=== PATIENT | male | born 1965 | race Caucasian/White ===

== ENCOUNTER 2017-01-02 00:36 | Emergency (ER) | payer BC ==
[2017-01-02 00:42] VITALS: TEMP 97.9
[2017-01-02] MEDS ORDERED: OXYMETAZOLINE 0.05% NASL SPRAY 15 ML NASAL STA (01:00)
--- NOTE | 2017-01-02 01:10 | ED ---
General Adult HPI - General Chief complaint: ENT Stated complaint: nose bleed Time Seen by Provider: 01/02/17 00:47 Source: patient, family, RN notes reviewed Mode of arrival: ambulatory Limitations: no limitations - History of Present Illness Initial comments: Patient is a pleasant 51-year-old male presenting to the emergency Department complaining of nosebleed. Onset was around 4 hours ago. Bleeding has been intermittent. Patient feels like bleeding is still occur and left-sided dripping down the back. Patient states his hemorrhoids may be bleeding somewhat however is not concerned regarding that. Patient is on Effient secondary to stent placement done around 4 months ago. Cardiac stenting. Patient denies any nose trauma. No weakness or shortness of breath. - Related Data Home Medications Medication Instructions Recorded Confirmed Ascorbic Acid [Vitamin C] 1,000 mg PO DAILY 07/09/16 07/09/16 Cyanocobalamin (Vitamin B-12) 5,000 mcg PO DAILY 07/09/16 07/09/16 [Vitamin B12] Multivitamins, Thera [Multivitamin] 1 tab PO DAILY 07/09/16 07/09/16 amLODIPine [Norvasc] 5 mg PO HS 07/09/16 07/09/16 cloNIDine HCL [Catapres] 0.1 mg PO TID 07/09/16 07/09/16 Previous Rx's Medication Instructions Recorded Aspirin 325 mg PO DAILY #30 tab 07/12/16 Lisinopril [Zestril] 5 mg PO BID #60 tab 07/12/16 Metoprolol Tartrate [Lopressor] 50 mg PO BID #60 tab 07/12/16 Nitroglycerin Sl Tabs [Nitrostat] 0.4 mg SUBLINGUAL Q5M PRN #25 tab 07/12/16 Prasugrel [Effient] 10 mg PO DAILY #30 tab 07/12/16 Rosuvastatin Calcium [Crestor] 40 mg PO DAILY #30 tab 07/12/16 ALPRAZolam [Xanax] 0.5 mg PO Q8HR PRN #10 tablet 01/02/17 Allergies Allergy/AdvReac Type Severity Reaction Status Date / Time Latex, Natural Rubber Allergy Mild Rash/Hives Verified 01/02/17 00:42 adhesive tape AdvReac Itching Verified 01/02/17 00:42 Review of Systems ROS Statement: Those systems with pertinent positive or pertinent negative responses have been documented in the HPI. ROS Other: All systems not noted in ROS Statement are negative. Constitutional: Denies: fever Eyes: Denies: eye pain ENT: Reports: epistaxis. Denies: ear pain Respiratory: Denies: dyspnea Cardiovascular: Denies: chest pain Endocrine: Denies: fatigue Gastrointestinal: Denies: abdominal pain Genitourinary: Denies: dysuria Musculoskeletal: Denies: back pain Skin: Denies: rash Neurological: Denies: weakness Past Medical History Past Medical History: Chest Pain / Angina, Hyperlipidemia, Hypertension Additional Past Medical History / Comment(s): arsenic poisoning, vitamin deficiency, [place] disease History of Any Multi-Drug Resistant Organisms: None Reported Past Surgical History: Hernia Repair, Tonsillectomy Additional Past Surgical History / Comment(s): 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 Past Anesthesia/Blood Transfusion Reactions: No Reported Reaction Past Psychological History: No Psychological Hx Reported Smoking Status: Never smoker Past Alcohol Use History: None Reported Past Drug Use History: None Reported - Past Family History Father Family Medical History: Coronary Artery Disease (CAD), Myocardial Infarction (CT ) Mother Family Medical History: Cancer General Exam Limitations: no limitations General appearance: alert, in no apparent distress Head exam: Present: atraumatic Eye exam: Present: normal appearance, PERRL ENT exam: Present: other (Left nares with fresh blood. Unable to identify site of active bleeding.) Neck exam: Present: normal inspection Respiratory exam: Present: normal lung sounds bilaterally Cardiovascular Exam: Present: regular rate, normal rhythm GI/Abdominal exam: Present: soft. Absent: tenderness Extremities exam: Present: normal inspection Neurological exam: Present: alert Psychiatric exam: Present: normal affect, normal mood Skin exam: Absent: rash Course Vital Signs 01/02/17 00:40 Temperature 97.9 F Pulse Rate 89 Respiratory 20 Rate Blood Pressure 154/90 O2 Sat by Pulse 96 Oximetry - Reevaluation(s) Reevaluation #1: 01/02/17 01:06 Patient is advised to discontinue Effient for the next few days. Procedures - Procedures Initial comment: Epistaxis: Left near does have some fresh blood without signs of active bleeding. Secondary to prolonged bleeding posterior/long Rhino Rocket was placed without Complication. Afrin was also used. Hemostasis was obtained Medical Decision Making - Medical Decision Making Hemostasis remains. Patient advised to hold Effient for the next few days. Disposition Clinical Impression: Epistaxis Disposition: HOME SELF-CARE Condition: Stable Instructions: Nosebleed (ED) Additional Instructions: Please follow-up with primary care physician and ENT. ENT and 3-5 days for packing removal and further evaluation. Continue antibiotics while packing is in place, your currently on antibiotics. Return for uncontrolled bleeding, bleeding from other areas, worsening symptoms or other concerns. Hold Effient until advised by your doctor. Prescriptions: ALPRAZolam [Xanax] 0.5 mg PO Q8HR PRN #10 tablet PRN Reason: Anxiety Referrals: Willie Tate DO [Primary Care Provider] - 1-2 days Azael Burris DO [Doctor of Osteopathic Medicine] - 1-2 days
[2017-01-02] MEDS ORDERED: ALPRAZolam 0.5 MG TAB PO STA (03:02)
[2017-01-02 03:29] VITALS: BP 159/89; PULSE 90; RESP 18
== END 2017-01-02 03:12 | disposition home or self-care (01) ==
LOC: EC 00:36
DX: R04.0 Epistaxis (principal); I10 Essential (primary) hypertension; Z79.899 Other long term (current) drug therapy; Z91.040 Latex allergy status; Z91.048 Other nonmedicinal substance allergy status
CPT/HCPCS: 30901; 99283

== ENCOUNTER 2023-07-22 21:47 | Emergency (ER) | payer BC ==
[2023-07-22 21:55] VITALS: PULSE 90; RESP 18
[2023-07-22] MEDS ORDERED: SODIUM CHLORIDE 0.9% 1,000 ML IV STA (21:56)
[2023-07-22] MEDS ORDERED: FAMOTIDINE 20 MG/2 ML VIAL IV STA (21:56)
[2023-07-22] MEDS ORDERED: methylPREDNISolone SOD SUCCI 125 MG/2 ML VIAL IV STA (21:56)
[2023-07-22] MEDS ORDERED: diphenhydrAMINE 50 MG CAP PO STA (21:56)
[2023-07-22] MEDS ORDERED: TRANEXAMIC 1,000 MG/100ML-NACL 1,000 MG in SALINE 1 100ML.BAG IVPB ONE (21:57)
--- NOTE | 2023-07-22 22:00 | ED ---
Allergic Reaction HPI - General Chief complaint: Allergic Reaction Stated complaint: Allergic reaction Time Seen by Provider: 07/22/23 21:54 Source: patient Mode of arrival: wheelchair Limitations: no limitations - History of Present Illness Initial Comments: Dewey is a very pleasant 58-year-old gentleman who presents the ER today for evaluation of possible ALLERGIC reaction. Patient reports that about 30 minutes prior to arrival he noticed that his lips and tongue were swelling his heart having trouble speaking and swallowing. He also noted some redness of his face and neck. No rash anywhere else. States that he felt like his tongue was swoll en that made it difficult to breathe but otherwise no wheezing no cough. No nausea or vomiting. No new exposures that he is aware of at all. He is on lisinopril. - Related Data Home Medications Medication Instructions Recorded Confirmed Ascorbic Acid [Vitamin C] 1,000 mg PO DAILY 07/09/16 07/09/16 Cyanocobalamin (Vitamin B-12) 5,000 mcg PO DAILY 07/09/16 07/09/16 [Vitamin B12] Multivitamins, Thera [Multivitamin] 1 tab PO DAILY 07/09/16 07/09/16 amLODIPine [Norvasc] 5 mg PO HS 07/09/16 07/09/16 cloNIDine HCL [Catapres] 0.1 mg PO TID 07/09/16 07/09/16 Previous Rx's Medication Instructions Recorded Aspirin 325 mg PO DAILY #30 tab 07/12/16 Metoprolol Tartrate [Lopressor] 50 mg PO BID #60 tab 07/12/16 Nitroglycerin Sl Tabs [Nitrostat] 0.4 mg SUBLINGUAL Q5M PRN #25 tab 07/12/16 Prasugrel [Effient] 10 mg PO DAILY #30 tab 07/12/16 Rosuvastatin Calcium [Crestor] 40 mg PO DAILY #30 tab 07/12/16 lisinopriL [Zestril] 5 mg PO BID #60 tab 07/12/16 ALPRAZolam [Xanax] 0.5 mg PO Q8HR PRN #10 tablet 01/02/17 EPINEPHrine (Auto Inject) [Epipen] 0.3 mg IM ONCE PRN #1 each 07/22/23 Allergies Allergy/AdvReac Type Severity Reaction Status Date / Time Latex, Natural Rubber Allergy Mild Rash/Hives Verified 07/22/23 21:55 adhesive tape AdvReac Itching Verified 07/22/23 21:55 Review of Systems ROS Statement: Those systems with pertinent positive or pertinent negative responses have been documented in the HPI. ROS Other: All systems not noted in ROS Statement are negative. Past Medical History Past Medical History: Chest Pain / Angina, Hyperlipidemia, Hypertension Additional Past Medical History / Comment(s): arsenic poisoning, vitamin deficiency, [place] disease History of Any Multi-Drug Resistant Organisms: None Reported Past Surgical History: Hernia Repair, Tonsillectomy Additional Past Surgical History / Comment(s): lung biopsy-polyps caused by ar senic poisoning Past Anesthesia/Blood Transfusion Reactions: No Reported Reaction Past Psychological History: No Psychological Hx Reported Past Alcohol Use History: None Reported Past Drug Use History: None Reported - Past Family History Father Family Medical History: Coronary Artery Disease (CAD), Myocardial Infarction ([place]) Mother Family Medical History: Cancer General Exam - General Exam Comments Initial Comments: Physical Exam GENERAL: Moderate distress HENT: Normocephalic, Atraumatic Mild angioedema of the upper lip Angioedema of the uvula No significant angioedema of the tongue EYES: PERRL, EOMI PULMONARY: Unlabored respirations. No wheezing CARDIOVASCULAR: RRR Warm and well perfused extremities ABDOMEN: Non-distended SKIN: Hives noted on neck : Deferred NEUROLOGIC: Alert and oriented Normal speech Normal gait MUSCULOSKELETAL: Moving all extremities with no apparent injury PSYCHIATRIC: No SI/HI Limitations: no limitations Course Vital Signs 07/22/23 07/22/23 21:52 22:49 Pulse Rate 90 90 Respiratory 18 18 Rate Blood Pressure 163/110 164/107 O2 Sat by Pulse 99 98 Oximetry Medical Decision Making - Medical Decision Making Patient was seen and evaluated immediately upon arrival to the emergency department patient was noted to have some angioedema of the upper lip and uvula ALLERGIC reaction order set was ordered takes he was given for angioedema thought to be due to ice and a L Patient was observed and noted have improvement in the angioedema. Patient repo rts resolution of the sensation of swelling of his mouth or tongue he stated he can speak and swallow normally he felt much better and would like to be discharged home. Considering that we did not know the cause of the reaction and the patient did have some rash I did advise he may have had an ALLERGIC reaction and he should be prescribed an EpiPen. However given that he had angioedema and is on lisinopril I also recommended he stop this medication and follow with his continuous improvement lead to he will call tomorrow to discuss. Was pt. sent in by a medical professional or institution ([facility] Agarwal, CINDER CRUSHER OPERATOR, urgent care, hospital, or retirement...) When possible be specific @ -No Did you speak to anyone other than the patient for history (EMS, parent, family, police, friend...)? What history was obtained from this source @ -No Did you review nursing and triage notes (agree or disagree)? Why? @ -I reviewed and agree with nursing and triage notes Were old charts reviewed (outside hosp., previous admission, EMS record, old EKG, old radiological studies, urgent care reports/EKG's, retirement records)? Report findings @ -No previous visits Differential Diagnosis (chest pain, altered mental status, abdominal pain women, abdominal pain men, vaginal bleeding, weakness, fever, dyspnea, syncope, headache, dizziness, GI bleed, back pain, seizure, CVA, palpatations, mental health, musculoskeletal)? @ -Differential includes angioedema, ALLERGIC reaction, anaphylaxis EKG interpreted by me (3pts min.). @ -As above X-rays interpreted by me (1pt min.). @ -None done CT interpreted by me (1pt min.). @ -None done U/S interpreted by me (1pt. min.). @ -None done What testing was considered but not performed or refused? (CT, X-rays, U/S, labs)? Why? @ -None What meds were considered but not given or refused? Why? @ -Epinephrine was considered however the patient didn't have involvement of multiple organ systems tachycardia hypoxia or hypotension therefore did not meet criteria for anaphylaxis and considering risk versus benefit of epinephrine and an older male chose not to give it. Did you discuss the management of the patient with other professionals (sarah powell i.e. [facility] Agarwal, CINDER CRUSHER OPERATOR, lab, RT, psych nurse, medical social consultant, metallography teacher, teacher, morals squad police officer, assistant case manager)? Give summary @ -No Was smoking cessation discussed for >3mins.? @ -No Was critical care preformed (if so, how long)? @ - , 32 minutes Were there social determinants of health that impacted care today? How? (Homelessness, low income, unemployed, alcoholism, drug addiction, tra nsportation, low edu. Level, literacy, decrease access to med. care, [facility] [facility], rehab)? @ -No Was there de-escalation of care discussed even if they declined (Discuss DNR or withdrawal of care, Hospice)? DNR status @ -No What co-morbidities impacted this encounter? (DM, HTN, Smoking, COPD, CAD, Cancer, CVA, ARF, Chemo, Hep., AIDS, mental health diagnosis, sleep apnea, morbid obesity)? @ -None Was patient admitted / discharged? Hospital course, mention meds given and route, prescriptions, significant lab abnormalities, going to OR and other pertinent info. @ -Discharge Undiagnosed new problem with uncertain prognosis? @ -No Drug Therapy requiring intensive monitoring for toxicity (Heparin, Nitro, Insulin, Cardizem)? @ -No Were any procedures done? @ -No Diagnosis/symptom? @ -ALLERGIC reaction, angioedema Acute, or Chronic, or Acute on Chronic? @ -default Uncomplicated (without systemic symptoms) or Complicated (systemic symptoms)? @ -default Side effects of treatment? @ -No Exacerbation, Progression, or Severe Exacerbation? @ -No Poses a threat to life or bodily function? How? (Chest pain, [place], [place], pneumonia, PE, COPD, DKA, ARF, appy, cholecystitis, CVA, Diverticulitis, Homicidal, Suicidal, threat to staff... and all critical care pts) @ Yes, can cause airway obstruction, can cause anaphylaxis or shock - Lab Data Result diagrams: 07/22/23 22:00 07/22/23 22:00 Lab Results 07/22/23 07/22/23 Range/Units 22:00 22:00 WBC 7.7 (3.8-10.6) k/uL RBC 5.23 (4.30-5.90) m/uL Hgb 16.9 (13.0-17.5) gm/dL Hct 49.7 (39.0-53.0) % MCV 95.0 (80.0-100.0) fL MCH 32.3 (25.0-35.0) pg MCHC 34.0 (31.0-37.0) g/dL RDW 13.9 (11.5-15.5) % Plt Count 194 (150-450) k/uL MPV 7.1 Neutrophils % 63 % Lymphocytes % 27 % Monocytes % 7 % Eosinophils % 1 % Basophils % 0 % Neutrophils # 4.8 (1.3-7.7) k/uL Lymphocytes # 2.1 (1.0-4.8) k/uL Monocytes # 0.5 (0-1.0) k/uL Eosinophils # 0.1 (0-0.7) k/uL Basophils # 0.0 (0-0.2) k/uL Sodium 139 (137-145) mmol/L Potassium 4.0 (3.5-5.1) mmol/L Chloride 104 (98-107) mmol/L Carbon Dioxide 27 (22-30) mmol/L Anion Gap 8 mmol/L BUN 22 H (9-20) mg/dL Creatinine 1.09 (0.66-1.25) mg/dL Est GFR (CKD-EPI)AfAm 85 (>60 ml/min/1.73 sqM) Est GFR (CKD-EPI)NonAf 73 (>60 ml/min/1.73 sqM) Glucose 101 H (74-99) mg/dL Calcium 9.6 (8.4-10.2) mg/dL Total Bilirubin 0.7 (0.2-1.3) mg/dL AST 39 (17-59) U/L ALT 45 (4-49) U/L Alkaline Phosphatase 42 (38-126) U/L Total Protein 7.1 (6.3-8.2) g/dL Albumin 4.3 (3.5-5.0) g/dL - EKG Data -: EKG Interpreted by Me EKG Comments: EKG interpreted by me EKG was obtained due to ALLERGIC reaction, EKG was obtained at 2157 rate was 82 rhythm is sinus is normal axis, normal intervals, DE 192 QRS or QTC 399 there are no acute ST elevations or depressions no evidence of ischemia or infarction. Disposition Clinical Impression: Allergic reaction, Angioedema Disposition: HOME SELF-CARE Condition: Stable Additional Instructions: Today he had a reaction called angioedema, this could have been due to lisinopril your blood pressure medication. He needs to discontinue use of this medication. Contact your continuous improvement lead to discuss alternative medications to treat high blood pressure. Prescriptions: EPINEPHrine (Auto Inject) [Epipen] 0.3 mg IM ONCE PRN #1 each PRN Reason: Anaphylaxis Is patient prescribed a controlled substance at d/c from ED?: No Referrals: Willie Tate DO [STAFF PHYSICIAN] - 1-2 days
[2023-07-22 22:21] LABS: Basophils % (A) 0 %; Eosinophils # (A) 0.1 k/uL (0-0.7); Eosinophils % (A) 1 %; HCT 49.7 % (39.0-53.0); HGB 16.9 gm/dL (13.0-17.5); Lymphocytes # (A) 2.1 k/uL (1.0-4.8); Lymphocytes % (A) 27 %; MCH 32.3 pg (25.0-35.0); Mean Platelet Volume 7.1; Monocytes # (A) 0.5 k/uL (0-1.0); Monocytes % (A) 7 %; Neutrophils # (A) 4.8 k/uL (1.3-7.7); Neutrophils % (A) 63 %; Platelet Count 194 k/uL (150-450); RBC 5.23 m/uL (4.30-5.90); RDW 13.9 % (11.5-15.5); WBC 7.7 k/uL (3.8-10.6)
[2023-07-22 22:26] LABS: ALT 45 U/L (4-49); AST 39 U/L (17-59); African American GFR (CKD) 85 (>60 ml/min/1.73 sqM); Albumin 4.3 g/dL (3.5-5.0); Alkaline Phosphatase 42 U/L (38-126); Anion Gap 8 mmol/L; Blood Urea Nitrogen 22 mg/dL (9-20); Calcium 9.6 mg/dL (8.4-10.2); Carbon Dioxide 27 mmol/L (22-30); Chloride 104 mmol/L (98-107); Glucose 101 mg/dL (74-99); Non-African American GFR(CKD) 73 (>60 ml/min/1.73 sqM); Sodium 139 mmol/L (137-145); Total Bilirubin 0.7 mg/dL (0.2-1.3); Total Protein 7.1 g/dL (6.3-8.2)
[2023-07-22 22:57] VITALS: BP 164/107
== END 2023-07-22 23:39 | disposition home or self-care (01) ==
LOC: EC 21:47
DX: T78.3XXA Angioneurotic edema, initial encounter (principal); I10 Essential (primary) hypertension; E78.5 Hyperlipidemia, unspecified; Z79.899 Other long term (current) drug therapy; Z91.040 Latex allergy status; Z88.8 Allergy status to other drugs, medicaments and biological substances
CPT/HCPCS: 36415; 80053; 85025; 99283; 96365; 96375 ×2; 96361; J2930; J3490